=== PATIENT | male | born 1965 | race African-American/Black ===

== ENCOUNTER 2021-03-05 13:44 | Emergency (ER) | payer MEDICAID ==
[~2021-03-05] VITALS: Ht 182.9 cm; Wt 73.0 kg
[2021-03-05] MEDS ORDERED: IBUPROFEN 600MG TABLET PO ONE (14:15)
[2021-03-05] MEDS ORDERED: IBUP-2029 MT (14:15)
[2021-03-05 14:51] VITALS: BP 152/88
== END 2021-03-05 14:59 | disposition home or self-care (01) ==
LOC: ER 13:44
DX: Z20.822 Contact with and (suspected) exposure to COVID-19 (principal); I10 Essential (primary) hypertension
CPT/HCPCS: 93005; 99283